=== PATIENT | male | born 1965 | race Caucasian/White ===

== ENCOUNTER 2018-02-08 06:31 | Day surgery (SDC) | payer OTHER ==
--- OUTSIDE RECORDS SUMMARY | 2018-02-08 06:53 | XMS REPORT ---
:1965 Author Organization eClinicalWorks Care Team Providers Name Role Phone Ross [place] Provider Role Unavailable Allergies, Adverse Reactions, Alerts Substance Reaction Event Type N.K.D.A. Info Not Available Non Drug Allergy Problems Problem Type Condition Code Onset Dates Condition Status Assessment Seasonal allergies J30.2 Active Assessment HTN (hypertension), benign I10 Active Assessment Mixed hyperlipidemia E78.2 Active Problem Seasonal allergies J30.2 Active Problem Mixed hyperlipidemia E78.2 Active Problem HTN (hypertension), benign I10 Active Assessment Encounter for preventative adult Z00.01 Active health care exam with abnormal findings Assessment Controlled type 2 diabetes mellitus E11.9 Active without complication, unspecified whether pen[facility]iary insulin use Problem Adult BMI 39.0-39.9 kg/sq m Z68.39 Active Problem Controlled type 2 diabetes mellitus E11.9 Active without complication, unspecified whether penitentiary insulin use Assessment Screen for colon cancer Z12.11 Active Assessment Need for Tdap vaccination Z23 Active Assessment Encounter for screening for other Z11.59 Active viral diseases Assessment Adult BMI 39.0-39.9 kg/sq m Z68.39 Active Medications Medication Code Code Instructions Start End Status Dosage System Date Date Atorvastatin [facility] 49668291446 10 MG Orally Active 1 tablet Calcium Once a day Valsartan-Hydroc [facility] 42181799227 320-25 MG Orally Active 1 tablet hlorothiazide Once a day Metoprolol [facility] 98185130053 100 MG Orally Active 1 tablet Succinate ER Once a day GlipiZIDE ER [facility] 38392571654 10 MG Orally Active 1 tablet Once a day Metformin HCl [facility] 98758701166 1000 MG Orally Active 1 tablet Once a day with a meal Sertraline HCl [facility] 42464776137 50 MG Orally Active 1 tablet Once a day Ventolin HFA [facility] 62037781820 108 (90 Base) Active 2 puffs MCG/ACT as needed Inhalation every 6 hrs Montelukast [facility] 73061733081 10 MG Orally Active 1 tablet Sodium Once a day Amlodipine [facility] 95364427904 10 MG Orally Active 1 tablet Besylate Once a day Results No Known Results Immunizations Vaccine Administration Date TDAP > 7 Years-Adacel December 14, 2017 Summary Purpose eClinicalWorks Submission
--- OUTSIDE RECORDS SUMMARY | 2018-02-08 06:53 | XMS REPORT ---
:1965 Author Organization e[employer]Works Care Team Providers Name Role Phone Kirby Albright Provider Role Unavailable Allergies, Adverse Reactions, Alerts Substance Reaction Event Type N.K.D.A. Info Not Available Non Drug Allergy Problems Problem Type Condition Code Onset Dates Condition Status Assessment Encounter for screening colonoscopy Z12.11 Active Problem Seasonal allergies J30.2 Active Problem Mixed hyperlipidemia E78.2 Active Problem Depression with anxiety F41.8 Active Problem HTN (hypertension), benign I10 Active Problem Adult BMI 39.0-39.9 kg/sq m Z68.39 Active Problem Controlled type 2 diabetes mellitus E11.9 Active without complication, unspecified whether termite control service representative insulin use Medications Medication Code Code Instructions Start End Status Dosage System Date Date Amlodipine [facility] 30586613489 10 MG Orally Active 1 tablet Besylate Once a day Ventolin HFA [facility] 30003830854 108 (90 Base) Active 2 puffs MCG/ACT as needed Inhalation every 6 hrs Montelukast ND 62397947170 10 MG Orally Active 1 tablet Sodium Once a day Metoprolol ND 24523441955 100 MG Orally Active 1 tablet Succinate ER Once a day Valsartan-Hydroc ND 65809772502 320-25 MG Orally Active 1 tablet hlorothiazide Once a day Sertraline HCl [facility] 97880824634 50 MG Orally Active 1 tablet Once a day Atorvastatin [facility] 61756020412 10 MG Orally Active 1 tablet Calcium Once a day GlipiZIDE ER ND 91846731544 10 MG Orally Active 1 tablet Once a day Metformin HCl ND 37214408009 1000 MG Orally Active 1 tablet BID with a meal Results No Known Results Summary Purpose eClinicalWorks Submission
--- OUTSIDE RECORDS SUMMARY | 2018-02-08 06:53 | XMS REPORT ---
:1965 Author Organization e[employer]Works Care Team Providers Name Role Phone Shira Malloy Provider Role Unavailable Allergies, Adverse Reactions, Alerts Substance Reaction Event Type N.K.D.A. Info Not Available Non Drug Allergy Problems Problem Type Condition Code Onset Dates Condition Status Assessment Cellulitis of right foot L03.115 Active Problem Seasonal allergies J30.2 Active Problem Mixed hyperlipidemia E78.2 Active Problem Depression with anxiety F41.8 Active Problem HTN (hypertension), benign I10 Active Problem Adult BMI 39.0-39.9 kg/sq m Z68.39 Active Problem Controlled type 2 diabetes mellitus E11.9 Active without complication, unspecified whether prison insulin use Medications Medication Code Code Instructions Start End Status Dosage System Date Date Ventolin HFA [facility] 02779272239 108 (90 Base) Active 2 puffs MCG/ACT as needed Inhalation every 6 hrs Metoprolol ND 17950034420 100 MG Orally Active 1 tablet Succinate ER Once a day Metformin HCl ND 17752205741 1000 MG Orally Active 1 tablet BID with a meal GlipiZIDE ER ND 55171968232 10 MG Orally Active 1 tablet Once a day Valsartan-Hydroc ND 78440612177 320-25 MG Orally Active 1 tablet hlorothiazide Once a day Atorvastatin ND 18244935334 10 MG Orally Active 1 tablet Calcium Once a day Amlodipine [facility] 83057922013 10 MG Orally Active 1 tablet Besylate Once a day Doxycycline ND 58811043481 100 mg Orally January 14, Active 1 tablet Monohydrate BID 2017 Montelukast ND 37768172672 10 MG Orally Active 1 tablet Sodium Once a day Sertraline HCl [facility] 94330819942 50 MG Orally Active 1 tablet Once a day Results No Known Results Summary Purpose eClinicalWorks Submission
--- OUTSIDE RECORDS SUMMARY | 2018-02-08 06:53 | XMS REPORT ---
:1965 Author Organization eClinicalWorks Care Team Providers Name Role Phone Jersey Hawkins Provider Role Unavailable Allergies No Known Allergies Problems Problem Type Condition Code Onset Dates Condition Status Assessment Mixed hyperlipidemia E78.2 Active Assessment Controlled type 2 diabetes mellitus E11.9 Active without complication, unspecified whether [facility] insulin use Assessment HTN (hypertension), benign I10 Active Assessment Adult BMI 39.0-39.9 kg/sq m Z68.39 Active Assessment Seasonal allergies J30.2 Active Assessment Depression with anxiety F41.8 Active Problem Seasonal allergies J30.2 Active Problem Mixed hyperlipidemia E78.2 Active Problem Depression with anxiety F41.8 Active Problem HTN (hypertension), benign I10 Active Problem Adult BMI 39.0-39.9 kg/sq m Z68.39 Active Problem Controlled type 2 diabetes mellitus E11.9 Active without complication, 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 Medications Medication Code Code Instructions Start End Status Dosage System Date Date Amlodipine [facility] 56854432611 10 MG Orally Active 1 tablet Besylate Once a day Atorvastatin [facility] 72798862346 10 MG Orally Active 1 tablet Calcium Once a day Sertraline HCl [facility] 09136675104 50 MG Orally Active 1 tablet Once a day GlipiZIDE ER ND 55571468594 10 MG Orally Active 1 tablet Once a day Metformin HCl [facility] 11813729620 1000 MG Orally Active 1 tablet BID with a meal Valsartan-Hydroc ND 78553365334 320-25 MG Orally Active 1 tablet hlorothiazide Once a day Metoprolol ND 95884574329 100 MG Orally Active 1 tablet Succinate ER Once a day Ventolin HFA [facility] 80752882277 108 (90 Base) Active 2 puffs MCG/ACT as needed Inhalation every 6 hrs Montelukast [facility] 15185713740 10 MG Orally Active 1 tablet Sodium Once a day Results No Known Results Summary Purpose eClinicalWorks Submission
--- OUTSIDE RECORDS SUMMARY | 2018-02-08 06:53 | XMS REPORT ---
:1965 Author Organization eClinicalWorks Care Team Providers Name Role Phone Kirby Albright Provider Role Unavailable Allergies No Known Allergies Problems Problem Type Condition Code Onset Dates Condition Status Problem Seasonal allergies J30.2 Active Problem Mixed hyperlipidemia E78.2 Active Problem Depression with anxiety F41.8 Active Problem HTN (hypertension), benign I10 Active Problem Adult BMI 39.0-39.9 kg/sq m Z68.39 Active Problem Controlled type 2 diabetes mellitus E11.9 Active without complication, unspecified whether intermediate insulin use Medications No Known Medications Results No Known Results Summary Purpose eClinicalWorks Submission
[2018-02-08] MEDS ORDERED: NA CHLORIDE 0.9% 1,000 ML ONE (07:02)
[2018-02-08] MEDS ORDERED: PROPOFOL 200 MG/20 ML VIAL IV ONE (07:32)
[2018-02-08] MEDS ORDERED: LIDOCAINE 1% MPF 5 ML VIAL ONE (07:32)
--- NOTE | 2018-02-08 08:03 | ENDO RPT ---
[address], [address] COLONOSCOPY PROCEDURE REPORT EXAM DATE: 02/08/2018 PATIENT NAME: Tenzin Renae MR #: [id number] BIRTHDATE: 1965 ATTENDING: Kirby Albright DR STATUS: outpatient [employer]: [employer] RN INDICATIONS: The patient is a 52 yr old Male here for a colonoscopy due to colon cancer screening PROCEDURE PERFORMED: Colonoscopy with biopsy - cold polypectomy MEDICATIONS: Per Anesthesia. ESTIMATED BLOOD LOSS: None CONSENT: The patient understands the risks and benefits of the procedure and understands that these risks include, but are not limited to: sedation, allergic reaction, infection, perforation and/or bleeding. Alternative means of evaluation and treatment include, among others: physical exam, x-rays, and/or surgical intervention. The patient elects to proceed with this endoscopic procedure. DESCRIPTION OF PROCEDURE: During intra-op preparation period all mechanical medical equipment was checked for proper function. Hand hygiene and appropriate measures for infection prevention was taken. Procedure, possible complications, alternatives including, but not limited to possibility of bleeding, perforation, tear, infection, sepsis, need for surgery, need for blood transfusion, were explained to the patient. After the risks, benefits and alternatives of the procedure were thoroughly explained, Informed consent was verified, confirmed and timeout was successfully executed by the treatment team. The patient was placed in the left lateral position. A digital rectal exam was performed and revealed internal hemorrhoids. After appropriate level of anesthesia, the scope was passed. The [id number] ([id number]) and [id number] ([id number]) endoscope was introduced through the anus and advanced to the cecum, which was identified by both the appendix and ileocecal valve. The quality of the prep was fair. The instrument was then slowly withdrawn as the colon was fully examined. Scope withdrawal time was 9 minutes. COLON FINDINGS: Three small smooth sessile polyps were found at the cecum and in the right colon. A polypectomy was performed with a cold snare. The resection was complete, the polyp tissue was completely retrieved and sent to histology. Retroflexed views revealed no abnormalities. The scope was then completely withdrawn from the patient and the procedure terminated. ADVERSE EVENTS: There were no complications. IMPRESSIONS: Three small sessile polyps were found at the cecum and in the right colon; polypectomy was performed with a cold snare RECOMMENDATIONS: 1. avoid NSAIDS for 2 weeks 2. await biopsy results 3. fiber rich diet 4. follow-up: office 2 week(s) RECALL: Return in 3 year(s) for Colonoscopy, pending biopsy results. Kirby Albright DR eSigned: Kirby Albright DR 02/08/2018 8:02 AM cc: CPT CODES: ICD9 CODES: PATIENT NAME: Tenzin Renae MR#: [id number]
== END 2018-02-08 08:45 | disposition home or self-care (01) ==
LOC: OR 06:31
PROVIDERS: ATTEND Surgery
PROC: 0DBF8ZX Excision of Right Large Intestine, Via Natural or Artificial Opening Endoscopic, Diagnostic (ICD-10-PCS; 2018-02-08)
PROC: 0DBH8ZX Excision of Cecum, Via Natural or Artificial Opening Endoscopic, Diagnostic (ICD-10-PCS; principal; 2018-02-08 07:30)
DX: Z12.11 Encounter for screening for malignant neoplasm of colon (principal); D12.0 Benign neoplasm of cecum; D12.3 Benign neoplasm of transverse colon; K64.8 Other hemorrhoids; I10 Essential (primary) hypertension; F17.210 Nicotine dependence, cigarettes, uncomplicated
CPT/HCPCS: 82962; 88305; J7030